=== PATIENT | male | born 1945 | race Caucasian/White ===

== ENCOUNTER 2021-06-16 17:03 | Emergency (ER) | payer MEDICARE, BC, SELFPAY ==
--- NOTE | ~2021-06-16 | CT_ITS ---
EXAMINATION: CT brain wo con INDICATION: Blurry vision, hypertension COMPARISON: None TECHNIQUE: Standard unenhanced head CT. The dose-length product (DLP) was 681.00 mGy-cm. The mA was a djusted according to patient size. Iterative reconstruction technique was employed. FINDINGS: There is no acute intraparenchymal hemorrhage. No evidence of mass lesion. No evidence of a cute infarction. There is mild periventricular and subcortical hypodensity probably related to small vessel ischemic disease. There is mild prominence of the sulci and ventricles related to cerebral atr ophy. Intracranial calcified cerebral atherosclerosis is noted. There are no extra-axial collections. There is no mass effect or midline shift. Changes in the globes are likely from ocular lens surgery. There is mild mucosal thickening of the paranasal sinuses. IMPRESSION: 1. No acute intracranial abnormality. 2. Age related findings. Reviewed, dictated and finalized at location F.
--- NOTE | ~2021-06-16 | XR_ITS ---
EXAMINATION: XR chest 2V DATE: 06/16/2021 20:23 INDICATION: Hypertension, chest pain TECHNIQUE: PA and lateral views of the chest are obtained. COMPARISON: 06/08/2017 FINDINGS: The lungs are free of acute opacities. There is no pleural effusion or pneumothorax. The ca rdiomediastinal silhouette is normal. There are bridging osteophytes at multiple levels in the spine, consistent with diffuse idiopathic skeletal hyperostosis (DISH). Calcified pulmonary nodules are con sistent with old granulomatous disease. Suture anchors in the humeral heads are consistent with prior rotator cuff repair. Surgical clips in the right upper quadrant are likely from prior cholecystectom y. IMPRESSION: 1. No acute cardiopulmonary abnormality. Reviewed, dictated and finalized at location F.
[2021-06-16 17:08] VITALS: BP 179/99; PULSE 82; RESP 18; TEMP 36.8; O2SAT 98
--- NOTE | 2021-06-16 18:47 | ECG_ITS ---
Measurements Intervals [place] Rate: 77 P: 33 WV: 189 QRS: -16 QRSD: 97 T: 29 QT: 377 QTc: 427 Interpretive Statements SINUS RHYTHM LEFTWARD AXIS MINOR T-WAVE ABNORMALITY ABNORMAL ECG NO PREVIOUS ECG AVAILABLE FOR COMPARISON Electronically Signed On 06-17-2021 15:02:03 CDT by Devin Cox M.D.
--- NOTE | 2021-06-16 18:49 | ED.GENADULT ---
HPI - General Adult General Chief complaint: Recheck/Abnormal Lab/Rx Stated complaint: high blood pressure Time Seen by Provider: 06/16/21 18:38 History of Present Illness HPI narrative: Patient is a 75-year-old male with a history of hypertension, diabetes, afib s/p ablation (on xarelto) presents emergency department for elevated blood pressure reads over the past week. States he took his blood pressure today and it was in the 180s systolic, and decided to come to the emergency department for evaluation. He was compliant with his amlodipine and losartan today and over the past week. Reports twinges of chest discomfort in the center of his chest over the past week, but not currently or today. States when he pushes on his chest when these pains come on, it makes them worse. Denies exertional dyspnea or chest pain. Additionally reporting intermittent headaches that are associated with diplopia. States his headache is pulsatile in nature and was unrelieved after Tylenol this morning. He denies any weakness, difficulty with speech, falls, head trauma, shortness of breath, nausea, vomiting. Related Data Allergies Allergy/AdvReac Type Severity Reaction Status Date / Time No Known Allergies Allergy Unverified 10/12/17 08:56 Review of Systems Review of Systems: Gen: Denies fevers or chills Eyes: Reports diplopia. Denies eye pain ENT: Denies congestion Respiratory: Denies shortness of breath or cough CV: Denies chest pain or palpitations GI: Denies abdominal pain nausea, emesis or diarrhea : denies burning, urgency, frequency or hematuria Musculoskeletal: Denies back pain or muscle pain Neuro: Reports headache. Denies numbness, tingling, weakness or focal weakness Skin: Denies rash Except as documented, all other systems reviewed and negative All systems reviewed & are unremarkable except as noted in HPI and below Exam Narrative: APPEARANCE: Well appearing, no pain in distress, well-nourished. Head: Normocephalic and atraumatic. EYES: PERRLA/EOMI, conjunctivae clear NOSE: No nasal drainage EARS: External ear normal in appearance THROAT: Oropharynx is clear. Mucous membranes are moist. NECK: Supple. No adenopathy, no masses. RESPIRATORY: Airway patent, respirations nonlabored. Clear to auscultation bilaterally, no rales, rhonchi, wheezing. CARDIOVASCULAR: Regular rate and rhythm without murmurs, rubs, or gallops. ABDOMINAL: Normoactive bowel sounds. Soft, nontender, nondistended. No rebound tenderness or guarding. MUSCULOSKELETAL: Extremities are warm and well-perfused. Moves all extremities well. No edema. NEURO: Normal speech. No focal neurologic deficits. SKIN: Skin is warm and dry. No rashes. PSYCHIATRIC: Normal affect/mood. Course Course Emergency Course: EKG: NSR, rate of 77, normal axis, normal R wave progression. Vital Signs Vital signs: Vital Signs Temperature 98.2 F 06/16/21 17:08 Pulse Rate 82 06/16/21 17:08 Respiratory Rate 18 06/16/21 17:08 Blood Pressure 179/99 H 06/16/21 17:08 Pulse Oximetry 98 06/16/21 17:08 Temperature 98.2 F 06/16/21 17:08 Pulse Rate 78 06/16/21 22:11 Respiratory Rate 18 06/16/21 22:11 Blood Pressure 190/100 H 06/16/21 22:11 Pulse Oximetry 99 06/16/21 22:11 Medical Decision Making MDM Narrative Medical decision making narrative: 75-year-old male with a history of hypertension, hyperlipidemia, A. fib on Eliquis, here for multiple elevated home blood pressure readings in the setting of intermittent headaches and diplopia over the past week. Work-up negative for end organ damage. Patient is not currently having chest pain; EKG in NSR and troponin x 1 negative. Patient has numerous risk factors for TIA; although he is already on maximum treatment for this with his blood thinner. Shared decision-making was used for inpatient vs outpatient status, and ultimately decided for outpatient work-up. Spoke with Dr. Luciano Sanchez, patient's PCP, who informed me patient
[2021-06-16 19:41] LABS: Basophils Absolute Auto 0.1 K/mm3 (0.0-0.1); Basophils Percent Auto 0.5 % (0.2-1.2); Eosinophils Absolute Auto 0.2 K/mm3 (0-0.3); Eosinophils Percent Auto 1.6 % (0-4.4); Hematocrit 45.1 % (42.0-52.0); Hemoglobin 15.6 g/dL (14.0-18.0); Immature Granulocyte Absolute 0.06 K/mm3 (0.00-0.031); Immature Granulocyte Percent A 0.6 % (0-0.5); Lymphocytes Percent Auto 26.6 % (18.3-44.2); Mean Corpuscular HGB Conc 34.6 g/dl (32-36); Mean Corpuscular Hemoglobin 32.3 pg (26-34); Mean Corpuscular Volume 93.4 fl (80-100); Mean Platelet Volume 10.3 fl (7.4-10.4); Monocytes Absolute Auto 0.8 K/mm3 (0.1-0.6); Monocytes Percent Auto 8.3 % (2.6-8.5); Neutrophils Absolute Auto 5.9 K/mm3 (1.3-6.7); Neutrophils Percent Auto 62.4 % (45.5-73.1); Platelet Count Result 198 k/mm3 (150-375); Red Blood Count 4.83 M/mm3 (4.6-6.20); Red Cell Distribution Width 14.4 % (11.5-14.5); White Blood Count 9.4 K/mm3 (4.5-10.0)
--- NOTE | 2021-06-16 19:47 | PC.NURSE ---
Handoff received from Mami DAWSON. Patient found lying comfortably in ED stretcher. Calm and cooperative. AAOX4. Equal and unlabored resp. Skin is warm and dry. 20g IV LAC in place secured and patent. Blood work completed. Pending lab results. No complaints at this time. Patient stable. Patient assisted to the restroom. Will continue to monitor.
[2021-06-16 19:49] VITALS: BP 179/92; PULSE 76; RESP 18; O2SAT 98
[2021-06-16 19:52] LABS: Alanine Aminotransferase 29 U/L (4-50); Albumin Level 4.3 g/dL (3.5-5.1); Alkaline Phosphatase 120 U/L (38-126); Anion Gap 8 mmol/L (8-16); Aspartate Amino Transferase 32 U/L (17-59); Bilirubin,Total 0.8 mg/dL (0.2-1.3); Blood Urea Nitrogen 10 mg/dL (9-20); Calcium 8.9 mg/dL (8.4-10.2); Carbon Dioxide 28 mmol/L (22-30); Chloride 104 mmol/L (98-107); Estimated CRCL calculation 106 ml/min; Estimated Glomerular Filt Rate > 60; Glucose 184 mg/dL (65-110); Potassium 3.9 mmol/L (3.4-5.0); Sodium 140 mmol/L (137-145)
[2021-06-16 20:04] LABS: Troponin I < 0.012 ng/mL (0.000-0.034)
[2021-06-16 21:33] VITALS: BP 191/108; PULSE 72; RESP 18; O2SAT 98
[2021-06-16 22:11] VITALS: BP 190/100; PULSE 78; RESP 18; O2SAT 99
== END 2021-06-16 22:14 | disposition home or self-care (01) ==
PROVIDERS: Physician Assistant; Emergency Provider Emergency Medicine; PCP Family Medicine
DX: I10 Essential (primary) hypertension (principal); E11.9 Type 2 diabetes mellitus without complications; I48.91 Unspecified atrial fibrillation; Z79.01 Long term (current) use of anticoagulants; R94.31 Abnormal electrocardiogram [ECG] [EKG]
CPT/HCPCS: 36415; 70450; 71046; 80053; 84484; 85025; 93005; 99284

== ENCOUNTER 2023-05-05 08:44 | Outpatient (CLI) | payer MEDICARE, BC, SELFPAY ==
--- NOTE | ~2023-05-05 | MR_ITS ---
EXAMINATION: MR knee RT wo con DATE: 05/05/2023 10:32 INDICATION: Right knee pain. TECHNIQUE: Magnetic resonance imaging (MRI) of the right knee was performed without intravenous contr ast. Sequences included axial PD-weighted FS FSE, coronal PD-weighted FSE and PD-weighted FS FSE, sag ittal PD-weighted FSE, and sagittal T2-weighted FS FSE. COMPARISON: None. FINDINGS: Medial compartment: There is a vertical tear of body of medial meniscus. There is cartilage surface irregularity of femor al condyle and tibial condyle. Lateral compartment: Lateral meniscus is normal. Lateral compartment cartilage is normal. Patellofemoral compartment: Patellar cartilage is normal. There is shallow partial-thickness cartilage loss of medial trochlea. Ligaments and tendons: Anterior and posterior cruciate ligaments are normal. There are changes of prior sprain of medial col lateral ligament characterized by thickening and increased signal intensity proximally. There is a pa rtial tear of fibular collateral ligament. There is mild patellar tendinopathy. Fluid: There is no knee joint effusion. There is moderate prepatellar and superficial infrapatellar bursitis . IMPRESSION: 1. Mild chondrosis of medial and patellofemoral compartments. 2. Tear of medial meniscus. Reviewed, dictated and finalized at location E. DOCUMENTATION SPECIALIST
== END 2023-05-05 08:45 ==
PROVIDERS: PCP Orthopaedic Surgery; Referring Provider Family Medicine; Visit Provider Orthopaedic Surgery
DX: S83.241A Other tear of medial meniscus, current injury, right knee, initial encounter (principal); X58.XXXA Exposure to other specified factors, initial encounter
CPT/HCPCS: 73721